=== PATIENT | male | born 1955 | race American Indian/Alaskan Native ===

== ENCOUNTER 2018-05-13 08:13 | Outpatient (CLI) | payer MEDICAID ==
--- NOTE | 2018-05-13 08:48 | XRay Report ---
LEFT KNEE, 2 VIEWS History: Pain in left knee. Findings: No comparison. There is normal bone mineralization. Previous left knee replacement changes are evident. The hardware appears well applied. No obvious infection, loosening or fracture. Small joint effusion is suspected on the lateral image. Impression: Stable appearance of the left knee prosthesis. Small joint effusion.
== END 2018-05-13 08:14 | disposition home or self-care (01) ==
LOC: XRAY 08:13
PROVIDERS: ATTEND Internal Medicine
DX: M25.462 Effusion, left knee (principal); I10 Essential (primary) hypertension; E78.00 Pure hypercholesterolemia, unspecified